=== PATIENT | male | born 1975 | race Caucasian/White ===

== ENCOUNTER 2022-03-13 03:39 | Emergency (ER) | payer OTHER ==
[~2022-03-13] VITALS: Ht 188 cm; Wt 98.4 kg
[2022-03-13] MEDS ORDERED: MORPHINE 4 MG SYG IVP ONE (04:00)
[2022-03-13] MEDS ORDERED: 0.9%NACL 1000ML 1,000 ML IV ONE (04:00)
[2022-03-13] MEDS ORDERED: ONDANSETRON 4MG INJ IVP ONE (04:00)
[2022-03-13 04:08] LABS: APPEARANCE,URINE CLEAR (CLEAR); BASOPHILS % (AUTO) 0.6 % (0.0-5.0); BILIRUBIN,URINE 0.5 mg/dL (NEGATIVE); COLOR,URINE DARK-YELLOW (YELLOW); EOSINOPHILS % (AUTO) 2.7 % (0.0-8.0); GLUCOSE, URINE (UA) NEGATIVE (NEGATIVE); HEMATOCRIT 43.2 % (42-54); KETONES,URINE NEGATIVE (NEGATIVE); LEUKOCYTE ESTERASE ,URINE NEGATIVE Leu/uL (NEGATIVE); LYMPHOCYTES % (AUTO) 21.6 % (21.0-51.0); MEAN CORPUSCULAR HEMOGLOBIN 30.7 pg (27.0-33.0); MEAN CORPUSCULAR HGB CONC 33.6 g/dL (32.0-36.0); MEAN CORPUSCULAR VOLUME 91.3 fL (79-99); MONOCYTES % (AUTO) 6.2 % (3.0-13.0); NEUTROPHILS % (AUTO) 68.5 % (40.0-77.0); NITRATE,URINE 1+ (NEGATIVE); OCCULT BLOOD,URINE MODERATE (NEGATIVE); PLATELET COUNT (AUTO) 278 K/uL (130-400); PROTEIN,URINE 10 mg/dL (NEGATIVE); RED BLOOD CELL COUNT(AUTO) 4.73 MIL/uL (4.50-6.20); RED CELL DISTRIBUTION WIDTH 12.6 % (11.0-15.5); WHITE BLOOD COUNT (AUTO) 9.8 K/uL (4.8-10.8)
[2022-03-13 04:21] LABS: MUCUS,URINE RARE LPF (None Seen); WBC,URINE 0-1 /HPF (0-1)
[2022-03-13 04:22] LABS: CREATININE 1.7 mg/dL (0.5-1.5); POTASSIUM 3.4 mmol/L (3.5-5.1)
[2022-03-13 04:27] LABS: ALBUMIN 4.3 g/dL (3.5-5.0); TOTAL PROTEIN, SERUM 8.1 g/dL (6.0-8.3)
[2022-03-13] MEDS ORDERED: KETOROLAC 30MG VIAL (30MG/ML) IVP ONE (04:30)
[2022-03-13 05:58] VITALS: BP 131/72
[2022-03-13] MEDS ORDERED: TAMS-1 PO (06:32)
[2022-03-13] MEDS ORDERED: IBUP-1493 PO (06:32)
== END 2022-03-13 06:47 | disposition home or self-care (01) ==
LOC: EDH 03:39
DX: N13.2 Hydronephrosis with renal and ureteral calculous obstruction (principal); Z98.890 Other specified postprocedural states
CPT/HCPCS: 99284; 74176; 96374; 96375; 96361; 80053; 83690; 85025; 87040 ×2; 87088; 83605; 81001; 36415; J7030; J2405; J2270; J1885